=== PATIENT | female | born 1945 | race Caucasian/White ===

== ENCOUNTER 2019-03-17 10:19 | Emergency (ER) | payer MEDICARE ==
[~2019-03-17] VITALS: Ht 167.6 cm; Wt 78.2 kg
--- NOTE | 2019-03-17 10:42 | NUR ---
FIRST CONTACT WITH PT. PT STETAS "WHEEZING, COUGHING, DARK PHLEGM. THIS HAS BEEN GOING ON FOR 5 1/2 WEEKS" STATES "I AM ON A 30 DAY RUN OF [employer], ABOUT 2 WEEKS IN". STATES "MY DOCTOR TOLD ME TO COME BACK IN IF I STARTED WHEEZING, AND I'M WHEEZING, SO HERE I AM." PT'S AOX4. RESPS EVEN AND UNLABORED. DENIES N/V. BP/SPO2 MONITORS IN PLACE. CALL LIGHT WITHIN REACH.
[2019-03-17] MEDS ORDERED: ALBUTEROL/IPRATROPIUM 2.5MG/0.5MG, 3 ML ONE (10:58)
[2019-03-17] MEDS ORDERED: ALBUTEROL/IPRATROPIUM 2.5MG/0.5MG, 3 ML NPPB ONE (11:00)
[2019-03-17 11:11] LABS: BASOPHILS # (AUTO) 0.03 x10^3/uL (0-0.1); BASOPHILS % (AUTO) 0 % (0-1); EOSINOPHILS # (AUTO) 0.52 x10^3/uL (0-0.4); EOSINOPHILS % (AUTO) 8 % (1-7); LYMPHOCYTES # (AUTO) 1.06 x10^3/uL (1-3.4); LYMPHOCYTES % (AUTO) 15 % (22-44); MD NO; MEAN CORPUSCULAR HEMOGLOBIN 30.4 pg (27.0-34.8); MEAN CORPUSCULAR HGB CONC 32.5 g/dL (32.4-35.8); MEAN CORPUSCULAR VOLUME 93.4 fL (80-100); MEAN PLATELET VOLUME 7.1 fL (7.4-10.4); MONOCYTES # (AUTO) 0.68 x10^3/uL (0.2-0.8); MONOCYTES % (AUTO) 10 % (2-9); NEUTROPHILS % (AUTO) 67 % (42-75); PLATELET COUNT 376 x10^3/uL (130-400); RED BLOOD COUNT 3.83 x10^6/uL (3.82-5.3); RED CELL DISTRIBUTION WIDTH 16.3 % (9.6-15.2)
--- NOTE | 2019-03-17 11:16 | NUR ---
pt medicated per emar. pt tolerated well.
[2019-03-17 11:23] LABS: ALBUMIN 3.2 g/dL (3.4-5.0); ANION GAP 6 mmol/L (5-15); CHLORIDE 111 mmol/L (98-107)
[2019-03-17 11:26] LABS: TROPONIN I < 0.015 ng/mL (0.000-0.045)
--- NOTE | 2019-03-17 12:06 | NUR ---
PT RESTING IN [facility]. PT'S AOX4. RESPS EVEN AND UNLABORED. ALL MONITORS IN PLACE. CALL LIGHT WITHIN REACH.
[2019-03-17] MEDS ORDERED: ALBUTEROL SULFATE 2.5 MG/3 ML NPPB ONE (12:30)
--- NOTE | 2019-03-17 12:54 | NUR ---
REPORT GIVEN TO BETTE VILLAREAL.
[2019-03-17 12:56] VITALS: BP 120/49
[2019-03-17] MEDS ORDERED: ALBUTEROL SULFATE 2.5 MG/3 ML ONE (13:05)
[2019-03-17] MEDS ORDERED: ALBUTEROL SULFATE 2.5MG/0.5ML ONE (13:05)
--- NOTE | 2019-03-17 13:10 | NUR ---
1ST CONTACT C PT. RESTING ON CART IN NAD USING IPAD. SPEAKING IN FULL SENTANCES. AWARE OF PENDING RT TX, RE CALLED. DENIES ANY NEEDS. WILL CTM.
--- NOTE | 2019-03-17 13:40 | NUR ---
THROUGHPUT: RECEIVED AN ORDER FOR NEBULIZER, FAXED SCRIPT TO [facility]. FAXED MEDICAL INFORMATION TO DELIEVER AT HOME. FAMILY VERALIZED UNDERSTANDING
== END 2019-03-17 13:51 | disposition home or self-care (01) ==
LOC: ED 11:25
DX: J45.41 Moderate persistent asthma with (acute) exacerbation (principal)
CPT/HCPCS: 36415; 71046; 80048; 82040; 84484; 85025; 93005; 94640; 99284; J7512; J7613; J7620